=== PATIENT | female | born 1935 | race Caucasian/White ===

== ENCOUNTER 2019-09-08 | Emergency (ER) | payer MEDICARE ==
[~2019-09-08] MED LIST: DOXAZOSIN1 MG PO; GLYBURIDE5 MG PO; MAXZIDE PO; METFORMIN500 M1 PO; ULTRAM50 M1 PO
[2019-09-08] MEDS ORDERED: ORPHENADRINE100 MG PO ×2 (13:15)
[2020-03-20] MEDS ORDERED: NIFEDIPINE60 MG PO (10:54)
[2020-03-20] MEDS ORDERED: METFORMIN500 M2 PO (10:54)
[2020-03-20] MEDS ORDERED: GLIPIZIDE5 MG PO (10:55)
[2020-03-20] MEDS ORDERED: METOPROL TAR25 MG PO (10:55)
[2020-03-20] MEDS ORDERED: GERITOL COMPLETE PO (10:55)
[2020-03-20] MEDS ORDERED: LIPITOR20 MG PO (10:56)
== END 2019-09-08 13:40 | disposition home or self-care (01) ==
DX: M54.41 Lumbago with sciatica, right side (principal); E11.9 Type 2 diabetes mellitus without complications; I10 Essential (primary) hypertension; J44.9 Chronic obstructive pulmonary disease, unspecified

== ENCOUNTER 2019-09-22 | Emergency (ER) | payer MEDICARE ==
[~2019-09-22] MED LIST changes: +ORPHENADRINE100 MG PO
[2020-03-20] MEDS ORDERED: METFORMIN500 M2 PO (10:54)
[2020-03-20] MEDS ORDERED: NIFEDIPINE60 MG PO (10:54)
[2020-03-20] MEDS ORDERED: METOPROL TAR25 MG PO (10:55)
[2020-03-20] MEDS ORDERED: GERITOL COMPLETE PO (10:55)
[2020-03-20] MEDS ORDERED: GLIPIZIDE5 MG PO (10:55)
[2020-03-20] MEDS ORDERED: LIPITOR20 MG PO (10:56)
== END 2019-09-22 10:25 | disposition home or self-care (01) ==
PROC: 09C37ZZ Extirpation of Matter from Right External Auditory Canal, Via Natural or Artificial Opening (ICD-10-PCS; principal; 2019-09-22)
DX: T16.1XXA Foreign body in right ear, initial encounter (principal); E11.9 Type 2 diabetes mellitus without complications; I10 Essential (primary) hypertension; J44.9 Chronic obstructive pulmonary disease, unspecified; X58.XXXA Exposure to other specified factors, initial encounter

== ENCOUNTER 2020-03-27 08:04 | Day surgery (SDC) | payer MEDICARE ==
[~2020-03-27] VITALS: Ht 157.5 cm; Wt 66.2 kg
[~2020-03-27 08:04] MED LIST changes: +GERITOL COMPLETE PO; +GLIPIZIDE5 MG PO; +LIPITOR20 MG PO; +METFORMIN500 M2 PO; +METOPROL TAR25 MG PO; +NIFEDIPINE60 MG PO
[2020-03-27 10:54] VITALS: BP 166/67
== END 2020-03-27 11:05 | disposition home or self-care (01) ==
LOC: ENDO 08:04 → ORM 08:30 → ENDO 09:30
PROVIDERS: ATTEND Internal Medicine Gastroenterology
PROC: 0DBC8ZX Excision of Ileocecal Valve, Via Natural or Artificial Opening Endoscopic, Diagnostic (ICD-10-PCS; principal; 2020-03-27)
PROC: 0DBL8ZX Excision of Transverse Colon, Via Natural or Artificial Opening Endoscopic, Diagnostic (ICD-10-PCS; 2020-03-27)
DX: D12.0 Benign neoplasm of cecum (principal); D12.3 Benign neoplasm of transverse colon; K63.3 Ulcer of intestine; K64.4 Residual hemorrhoidal skin tags; K64.8 Other hemorrhoids; I10 Essential (primary) hypertension; E11.9 Type 2 diabetes mellitus without complications; Z79.84 Long term (current) use of oral hypoglycemic drugs; Z20.828 Contact with and (suspected) exposure to other viral communicable diseases

== ENCOUNTER 2021-01-01 19:35 | Emergency (ER) | payer MEDICARE ==
[~2021-01-01] VITALS: Ht 157.5 cm; Wt 64.0 kg
[2021-01-01] MEDS ORDERED: ADVAIR DISK1 IN (19:58)
[2021-01-01 20:08] LABS: HEMATOCRIT 40.9 % (37.0-47.0); HEMOGLOBIN 12.8 g/dl (12.0-16.0); IMMATURE GRANULOCYTES 0.5 % (0.0-5.0); MEAN CORPUSCULAR HGB 27.2 pG CALC (26.0-32.0); MEAN CORPUSCULAR HGB CONC 31.3 g/dL CAL (32.0-36.0); NEUT# 7.25 thou/uL (2.00-7.15); RED BLOOD COUNT 4.7 mill/uL (4.20-5.60); RED CELL DISTRI WIDTH 13.2 % (11.5-15.5)
[2021-01-01 20:18] LABS: ALBUMIN 4.6 g/dL (3.2-5.0); ALKALINE PHOSPHATASE 55 u/l (38-126); ANION GAP 16 (6-22 (CALC)); BILIRUBIN, TOTAL 0.3 mg/dL (0.0-1.4); BUN 17 mg/dL (8-23); BUN/CREATININE RATIO 24 (12-20 (CALC)); CARBON DIOXIDE 28 mmol/l (22-30); CHLORIDE 95 mmol/l (95-108); CREATININE 0.7 mg/dL (0.5-1.0); GFR > 60 ML/MIN (>=60 (CALC)); GFR FOR AFR.AMER. > 60 ML/MIN (>=60 (CALC)); POTASSIUM 4.1 mmol/l (3.5-5.1); SGOT/AST 24 u/l (9-36); SODIUM 135 mmol/l (137-146); TOTAL PROTEIN 8.7 g/dL (6.3-8.2)
[2021-01-01 21:08] VITALS: BP 190/93
[2021-01-01] MEDS ORDERED: PROAIR HFA108 MCG/AC IN (21:13)
== END 2021-01-01 21:28 | disposition home or self-care (01) ==
LOC: ED 19:35
PROVIDERS: Emergency Medicine
DX: J44.9 Chronic obstructive pulmonary disease, unspecified (principal); I10 Essential (primary) hypertension; E11.9 Type 2 diabetes mellitus without complications; Z79.84 Long term (current) use of oral hypoglycemic drugs; Z20.822 Contact with and (suspected) exposure to COVID-19

== ENCOUNTER 2021-01-04 11:37 | Emergency (ER) | payer MEDICARE ==
[~2021-01-04] VITALS: Ht 157.5 cm; Wt 80.0 kg
[~2021-01-04 11:37] MED LIST changes: +ADVAIR DISK1 IN; +PROAIR HFA108 MCG/AC IN
[2021-01-04 12:08] LABS: HEMATOCRIT 42.6 % (37.0-47.0); HEMOGLOBIN 13.2 g/dl (12.0-16.0); IMMATURE GRANULOCYTES 0.6 % (0.0-5.0); MEAN CELL VOLUME 87.1 fL CALC (80.0-100.0); NEUT# 10.88 thou/uL (2.00-7.15); RED BLOOD COUNT 4.89 mill/uL (4.20-5.60); RED CELL DISTRI WIDTH 13.4 % (11.5-15.5)
[2021-01-04 12:48] LABS: ALBUMIN 4.7 g/dL (3.2-5.0); ALKALINE PHOSPHATASE 58 u/l (38-126); ANION GAP 18 (6-22 (CALC)); BILIRUBIN, TOTAL 0.3 mg/dL (0.0-1.4); BUN 18 mg/dL (8-23); BUN/CREATININE RATIO 22 (12-20 (CALC)); CARBON DIOXIDE 29 mmol/l (22-30); CHLORIDE 91 mmol/l (95-108); CREATININE 0.8 mg/dL (0.5-1.0); GFR > 60 ML/MIN (>=60 (CALC)); GFR FOR AFR.AMER. > 60 ML/MIN (>=60 (CALC)); POTASSIUM 3.8 mmol/l (3.5-5.1); SGOT/AST 33 u/l (9-36); SODIUM 134 mmol/l (137-146); TOTAL PROTEIN 8.8 g/dL (6.3-8.2)
[2021-01-04 14:57] VITALS: BP 113/60
== END 2021-01-04 14:57 | disposition short-term general hospital (02) ==
LOC: ED 11:37
PROVIDERS: Family Medicine
DX: I21.4 Non-ST elevation (NSTEMI) myocardial infarction (principal); J44.1 Chronic obstructive pulmonary disease with (acute) exacerbation; I11.0 Hypertensive heart disease with heart failure; I50.9 Heart failure, unspecified; E11.9 Type 2 diabetes mellitus without complications; Z79.84 Long term (current) use of oral hypoglycemic drugs; Z20.822 Contact with and (suspected) exposure to COVID-19
CPT/HCPCS: J1650

== ENCOUNTER 2021-08-27 00:28 | Emergency (ER) | payer MEDICARE ==
[~2021-08-27] VITALS: Ht 157.5 cm; Wt 63.0 kg
[2021-08-27] MEDS ORDERED: LORTAB 5/3255 MG PO (01:21)
[2021-08-27 01:43] VITALS: BP 168/82
== END 2021-08-27 01:45 | disposition home or self-care (01) ==
LOC: ED 00:28
PROC: 2W3CX1Z Immobilization of Right Lower Arm using Splint (ICD-10-PCS; principal; 2021-08-27)
DX: S52.501A Unspecified fracture of the lower end of right radius, initial encounter for closed fracture (principal); I10 Essential (primary) hypertension; E11.9 Type 2 diabetes mellitus without complications; M79.7 Fibromyalgia; J44.9 Chronic obstructive pulmonary disease, unspecified; W18.2XXA Fall in (into) shower or empty bathtub, initial encounter; Y93.E1 Activity, personal bathing and showering; Y92.002 Bathroom of unspecified non-institutional (private) residence as the place of occurrence of the external cause; Z79.84 Long term (current) use of oral hypoglycemic drugs

== ENCOUNTER 2021-09-07 08:25 | Inpatient (IN) | payer MEDICARE ==
[~2021-09-07] VITALS: Ht 152.4 cm; Wt 65.8 kg
[2021-09-07] VITALS (37 sets, daily range): BP systolic 119–179; BP diastolic 47–116
[~2021-09-07 08:25] MED LIST changes: +GLIPIZIDE XL10 MG PO; -GLIPIZIDE5 MG PO; +LORTAB 5/3255 MG PO; +NIFEDIPINE ER60 MG PO; -NIFEDIPINE60 MG PO
--- NOTE | 2021-09-07 08:29 | NUR ---
PATIENT TO [facility] 14 VIA EMS
[2021-09-07 08:51] LABS: IMMATURE GRANULOCYTES 0.3 % (0.0-5.0); MEAN CELL VOLUME 90.1 fL CALC (80.0-100.0); MEAN CORPUSCULAR HGB 27.9 pG CALC (26.0-32.0); NEUT# 6.63 thou/uL (2.00-7.15); RED BLOOD COUNT 3.73 mill/uL (4.20-5.60); RED CELL DISTRI WIDTH 14.9 % (11.5-15.5)
[2021-09-07 08:58] LABS: HEMATOCRIT 33.6 % (37.0-47.0); HEMOGLOBIN 10.4 g/dl (12.0-16.0)
[2021-09-07 09:10] LABS: ALBUMIN 4.1 g/dL (3.2-5.0); ALKALINE PHOSPHATASE 61 u/l (38-126); ANION GAP 16 (6-22 (CALC)); BUN 14 mg/dL (8-23); BUN/CREATININE RATIO 24 (12-20 (CALC)); CARBON DIOXIDE 25 mmol/l (22-30); CHLORIDE 96 mmol/l (95-108); CREATININE 0.6 mg/dL (0.5-1.0); GFR > 60 ML/MIN (>=60 (CALC)); GFR FOR AFR.AMER. > 60 ML/MIN (>=60 (CALC)); POTASSIUM 4.2 mmol/l (3.5-5.1); SGOT/AST 27 u/l (9-36); SODIUM 133 mmol/l (137-146); TOTAL PROTEIN 7.6 g/dL (6.3-8.2)
[2021-09-07 09:11] LABS: BILIRUBIN, TOTAL 0.6 mg/dL (0.0-1.4)
[2021-09-07 09:24] LABS: MYOGLOBIN 22 ng/mL (0 - 62)
--- NOTE | 2021-09-07 10:17 | NUR ---
Reassessment of patient completed. No distress noted.
[2021-09-07 10:21] LABS: URINE BILIRUBIN - DIPSTICK NEGATIVE (NEGATIVE); URINE BLOOD DIPSTICK NEGATIVE (NEGATIVE); URINE COLOR YELLOW; URINE GLUCOSE - DIPSTICK NEGATIVE (NEGATIVE); URINE KETONE TRACE mg/dL (NEGATIVE); URINE LEUK ESTERASE NEGATIVE (NEGATIVE); URINE UROBILINOGEN - DIPSTICK 0.2 E.U./dL (0.2)
[2021-09-07 10:26] LABS: URINE NITRITE - DIPSTICK NEGATIVE (Negative); URINE PROTEIN - DIPSTICK Trace mg/dL (NEG-TRACE)
--- NOTE | 2021-09-07 14:50 | NUR ---
REPORT CALLED TO SANJAY YEAGER IN ICU
--- NOTE | 2021-09-07 15:07 | NUR ---
[facility] CURRENTLY BEDSIDE
[2021-09-07] MEDS ORDERED: PREDNISONE5 MG PO (15:12)
--- NOTE | 2021-09-07 15:12 | NUR ---
PATIENT TAKEN TO ICU 8
[2021-09-07] MEDS ORDERED: ELIQUIS2.5 MG PO (15:13)
[2021-09-07] MEDS ORDERED: TRAMADOL HYDROC50 M1 PO (15:14)
--- NOTE | 2021-09-07 17:01 | NUR ---
PT ARRIVES TO ROOM 8 IN ICU VIA STRETCHER, ACCOMPANIED BY PHAN YEAGER. PT IS ALERT AND ORIENTED X 3, VERY [place]. LUNGS CLEAR BUT DIMINISHED, PLACED ON HIFLOW NASAL CANNULA INSTEAD OF VENTI MASK. PT'S DAUGHTER HAS CALLED AND WAS UPDATED. MONITOR SHOWS CONTROLLED AFIB AT RATE OF 80-100. PT RESTS IN THE BED WITH EYES CLOSED, NO DISTRESS NOTED.
--- NOTE | 2021-09-07 18:44 | NUR ---
PER STAFFING ISSUES, PT HAS BEEN MOVED IN HER BED TO ROOM 16 IN THE ER. PT IS VERY UNHAPPY WITH THIS ARRANGEMENT. CARDIZEM DRIP HAS BEEN TITRATED UP TO 15 MG/HR, HR NOW 80-100. OXYGEN SATS 96%.
--- NOTE | 2021-09-07 19:15 | NUR ---
REPORT RECIEVED FROM SANJAY YEAGER OUT-GOING SHIFT. PATIENT ALERT AND ORIENTED CONDITION STABLE.
--- NOTE | 2021-09-07 20:15 | NUR ---
NEW ORDER RCIEVED BY DR JAYLEEN ELIAS FOR SONATA 5 MG TO AID WITH SLEEP.
--- NOTE | 2021-09-07 21:21 | NUR ---
RESTING QUIETLY NO DISTRESS RESPIRATIONS EVEN AND UNLABORED VOIDE 150 CC CLEAR YELLOW URINE ON THE BED HUTCH[place]. TURNED AND REPOSITIONED FOR COMFORT. REMAIN IN AFIB WITH CONTROLLED VENTICULAR RATE CARIZENM DRIP AT 15 CC/HR VSS STABLE
--- NOTE | 2021-09-07 22:02 | NUR ---
RESTING QUIETLY WITH EYES CLOSED NO DISTRESS NOTED CONDITION STABLE
--- NOTE | 2021-09-07 23:00 | NUR ---
DAUGHTER (JEAN) CALLED UPDATED ON CONDITION. PT RESTING QUIETLY WITHOUT ANY COMPLAINTS CONDITION STABLE
[2021-09-08] VITALS (24 sets, daily range): BP systolic 84–162; BP diastolic 53–105
--- NOTE | 2021-09-08 00:15 | NUR ---
CARDIZEM DRIP TITRATED DOWN FROM 15 MGHR TO 10 MG/HR HR 63 B/P 96/76 WILL CONTINUE TO MONITOR ERP SPECIALIST SHOWS AFIB
--- NOTE | 2021-09-08 02:07 | NUR ---
PHYSICIAn communication pt condition signs of congested failure lung sounds with audible expiratory wheezes. reported new oders recieved give lasix 20mg kvo iv fluids and insert sal catheter
--- NOTE | 2021-09-08 02:30 | NUR ---
teaching provided for sal catheter insertion. Patient acknowledge procedure and agree for insertion. 16 fr sal cathetefr inserted per doctors orders. pt tolerated well 600 cc urine hazy urine return noted catheter secured to leg. lasix 20 mg given as ordered.
--- NOTE | 2021-09-08 05:43 | NUR ---
PATIENT OXYGEN SATUARATON 93% NO ACUTE DISTRESS NOTED TOTAL URINE OUTPUT 1850 ML
[2021-09-08 06:04] LABS: HEMATOCRIT 32.4 % (37.0-47.0); HEMOGLOBIN 10.3 g/dl (12.0-16.0); IMMATURE GRANULOCYTES 0.4 % (0.0-5.0); MEAN CELL VOLUME 90.5 fL CALC (80.0-100.0); MEAN CORPUSCULAR HGB 28.8 pG CALC (26.0-32.0); MEAN CORPUSCULAR HGB CONC 31.8 g/dL CAL (32.0-36.0); NEUT# 4.93 thou/uL (2.00-7.15); RED BLOOD COUNT 3.58 mill/uL (4.20-5.60)
[2021-09-08 06:27] LABS: ALBUMIN 3.7 g/dL (3.2-5.0); ALKALINE PHOSPHATASE 54 u/l (38-126); ANION GAP 18 (6-22 (CALC)); BILIRUBIN, TOTAL 0.4 mg/dL (0.0-1.4); BUN 14 mg/dL (8-23); BUN/CREATININE RATIO 23 (12-20 (CALC)); C-REACTIVE PROTEIN 3.5 mg/dL (0-0.9); CARBON DIOXIDE 25 mmol/l (22-30); CHLORIDE 97 mmol/l (95-108); CREATININE 0.6 mg/dL (0.5-1.0); GFR > 60 ML/MIN (>=60 (CALC)); GFR FOR AFR.AMER. > 60 ML/MIN (>=60 (CALC)); POTASSIUM 3.8 mmol/l (3.5-5.1); SGOT/AST 22 u/l (9-36); SODIUM 136 mmol/l (137-146); TOTAL PROTEIN 6.9 g/dL (6.3-8.2)
--- NOTE | 2021-09-08 09:00 | NUR ---
PT SEEN EXTREMELY ANXIOUS AT START OF SHIFT. SHE FELT CONFINED IN ROOM 16, DID NOT HAVE A TV, WANTED A WINDOW TO LOOK OUT, IV HURTING, TANGLED UP IN WIRES, FELT LIKE SHE NEEDED TO VOID EVEN THOUGH SHE HAS GODNIEZ. EACH COMPLAINT WAS ADDRESSED, SO NOW SHE IS IN ROOM 13. FAMILY CALLED AND WAS UPDATED.
--- NOTE | 2021-09-08 11:57 | NUR ---
CARDIZEM DRIP HAS BEEN TURNED OFF PER HR 65, BP 95/57. PT SEEN AT REST IN THE BED WITH EYES CLOSED, TALKING IN HER SLEEP.
--- NOTE | 2021-09-08 13:49 | NUR ---
PT WOKE FROM A NAP, WAS TALKING LOUDLY CALLING NURSE IN ROOM. SHE THOUGHT THAT SHE WAS AT A [facility] AND WAS SURPRISED TO KNOW THAT SHE WAS IN THE HOSPITAL. DAUGHTER JEAN CALLED AT THAT TIME AND WAS CONCERNED ABOUT THIS. LATER PT STATED THAT THIS HAPPENS WHEN HER DAUGHTER GIVES HER ULTRAM. PT HAD BEEN GIVEN ULTRAM FOR PAIN RELIEF THIS MORNING. PT NOW REORIENTED, AT REST IN THE BED, NO DISTRESS, NO FURTHER CONFUSION.
--- NOTE | 2021-09-08 15:50 | NUR ---
PT CONTINUES IN THE BED, RESTLESS AT TIMES, USING CALL LEIVA WITHOUT MEANING TO CALL NURSE, TEXTING ON HER PHONE. HR REMAINS AFB HR 92. OXYGEN SATS 95% ON 4 LPM NC. PT REMAINS SOMEWHAT CONFUSED.
--- NOTE | 2021-09-08 18:06 | NUR ---
CARDIZEM DRIP WAS RESTARTED PER ELEVATING HR IN THE 130 RANGE, 10 MG/HR.
--- NOTE | 2021-09-08 19:10 | NUR ---
moved back to icu8 per bed from er. pt cont to yell out "take me to the hospital." refers to the day shift male nurse as "that man took me from the hospital." pt reassured. attached to all monitors. bed alarm activated. after a few minutes pt calmed down. o2 cont per nc. cardiac care unit nurse shows a fib hr 123. #20 lfa cardizem gtt infusing @ 10mg/hr ns infusing @ 20cchr. sal cath in place. urine clear yellow. fall & air/contact precautions cont.
--- NOTE | 2021-09-08 19:15 | NUR ---
ICU OPENED AT ICU NURSES HERE TO TRANSPORT THE PT'S TO ICU.
--- NOTE | 2021-09-08 20:45 | NUR ---
pt yelling out "i see smoke. it's white smoke." pt reassured.
--- NOTE | 2021-09-08 21:45 | NUR ---
awake. remains confused but calm. still thinks "there's white smoke in here." pt pulled o2, monitor technician & pulse ox off-replaced.
--- NOTE | 2021-09-09 00:01 | NUR ---
has slept for approx 2 hrs now is awake attempting to get oob. thinks there is a man, squirrels & frogs in her room. is VERY aggitated for approx 30min. this telegraphic typewriter operator remained in the room during this episode then pt returned to sleep. bed alarm cont.
[2021-09-09 00:15] VITALS: BP 110/55
[2021-09-09 01:15] VITALS: BP 131/66
--- NOTE | 2021-09-09 02:00 | NUR ---
eyes closed. no distress. monitor technician shows a fib pvcs.
--- NOTE | 2021-09-09 04:00 | NUR ---
awake. attempting to get oob. confused. speaks of "need to go to the courthouse. i might get sued." became aggitated, yelling @ this senior underwriter. spent approx 40 min in room with pt d/t her confusion & attempts to get oob. spoke @ length multiple times about reasons for hospitalization. unable to fully orient but became calmer. bed alarm conts.
[2021-09-09 04:15] VITALS: BP 166/96
[2021-09-09 05:40] LABS: HEMATOCRIT 31.8 % (37.0-47.0); HEMOGLOBIN 10.1 g/dl (12.0-16.0); MEAN CELL VOLUME 88.6 fL CALC (80.0-100.0); MEAN CORPUSCULAR HGB 28.1 pG CALC (26.0-32.0); MEAN CORPUSCULAR HGB CONC 31.8 g/dL CAL (32.0-36.0); RED BLOOD COUNT 3.59 mill/uL (4.20-5.60); RED CELL DISTRI WIDTH 14.9 % (11.5-15.5)
--- NOTE | 2021-09-09 05:54 | NUR ---
awake. somewhat confused but calm. o2 cont. residential monitor shows a fib pvcs hr 101.
[2021-09-09 05:55] LABS: ALBUMIN 3.9 g/dL (3.2-5.0); ALKALINE PHOSPHATASE 83 u/l (38-126); ANION GAP 20 (6-22 (CALC)); BILIRUBIN, TOTAL 0.6 mg/dL (0.0-1.4); BUN 21 mg/dL (8-23); BUN/CREATININE RATIO 30 (12-20 (CALC)); CARBON DIOXIDE 21 mmol/l (22-30); CHLORIDE 96 mmol/l (95-108); CREATININE 0.7 mg/dL (0.5-1.0); GFR > 60 ML/MIN (>=60 (CALC)); GFR FOR AFR.AMER. > 60 ML/MIN (>=60 (CALC)); MAGNESIUM 1.3 mg/dL (1.6-2.3); POTASSIUM 4.2 mmol/l (3.5-5.1); SGOT/AST 87 u/l (9-36); SODIUM 133 mmol/l (137-146); TOTAL PROTEIN 7.1 g/dL (6.3-8.2)
--- NOTE | 2021-09-09 07:30 | NUR ---
PT SITTING IN BED. A&OX3. PT VERY [place]. PT ABLE TO RECALL CONFUSION DURING THE NIGHT, STATES THAT IT IS THE "TRAMADOL, EVERY TIME I TAKE IT I GO NUTS". PT ALSO REFUSES TO TAKE MEDICATION AGAIN. RT WRIST FX; PT STATING SHE WAS SUPPOSED TO HAVE SURGERY AT [facility]. EXPIRATORY WHEEZING/COARSE HEARD UPON AUSUCLTATION. O2 VIA NC @4L IN PLACE; PT REPORTS USING O2 AT HOME AT 3L. PT CURRENTLY AFIB ON THE MONITOR WITH A RATE OF 115-130 BPM. CARDIZEM GTT CURRENTLY INFUSING AT 10 MG/HR. IVF INFUSING AT KVO; ABX INITIATED AT THIS TIME. IVS APPEAR HEALTHY AND PATENT. ACTIVE BOWEL SOUNDS X4 QUADRANTS. GODINEZ CATHETER IN PLACE DRAINING VIA GRAVITY WITH CLEAR YELLOW URINE NOTED IN COLLECTION BAG. PT ABLE TO TAKE PO MEDICATIONS WITHOUT COMPLICATIONS. ASSESSMENT COMPLETED. DISCUSSED POC. ISOLATION PRECAUTIONS IN PLACE. CALL LIGHT WITHIN REACH. BED ALARM IN PLACE FOR SAFETY.
[2021-09-09 08:00] VITALS: BP 135/71
--- NOTE | 2021-09-09 08:13 | NUR ---
CARDIZEM GTT TITRATED DOWN TO 5MG/MIN.
--- NOTE | 2021-09-09 08:30 | NUR ---
KRISTIN GTT D/C AT THIS TIME HR SUSTAINING 68-72 BPM. DAUGHTER JEAN UPDATED ON POC THROUGH FT CALL COMPLETED BY PT. NO NEEDS REPORTED AT THIS TIME. CALL LIGHT WITHIN REACH. BED ALARM REMAINS IN PLACE FOR SAFETY.
--- NOTE | 2021-09-09 10:00 | NUR ---
PT REQUESTING TO GET OOB INTO THE BSC FOR BM, PT UNABLE TO HAVE BM. DR RUEDA NOTIFIED; MOM ORDERED. PT ASSISTED BACK INTO BED. CALL LIGHT WITHIN REACH. BED ALARM IN PLACE FOR SAFETY.
[2021-09-09 12:00] VITALS: BP 127/70
--- NOTE | 2021-09-09 12:42 | NUR ---
PT ATTEMPTING TO GET OOB; SCREAMING STATING "WHERE IS JEAN? CAN YOU FIND JEAN? SHE WAS JUST HERE! IM IN A DIFFERENT BED!" REORIENTED PT TO CURRENT PLACE. ASSISTED PT BACK INTO BED. CALL LIGHT WITHIN REACH. BED ALARM IN PLACE FOR SAFETY. DR RUEDA NOTIFIED; ORDER OBTAINED FOR PO SEROQUIL.
--- NOTE | 2021-09-09 12:53 | NUR ---
PO SEROQUIL GIVEN. PT TOLERATED WELL
--- NOTE | 2021-09-09 14:57 | NUR ---
PT AWAKENED AND SCARED; STATES SHE WAS HAVING A BAD DREAM. PT REORIENTED. PT ASSISTED BACK INTO BED. ABLE TO FALL BACK ASLEEP. CALL LIGHT WITHIN REACH. BED ALARM IN PLACE FOR SAFTETY.
[2021-09-09 16:00] VITALS: BP 146/78
--- NOTE | 2021-09-09 16:00 | NUR ---
PT SLEEPING IN BED. NO DISTRESS NOTED. O2 REMAINS UNCHANGED @3L . BED ALARM IN PLACE FOR SAFETY.
--- NOTE | 2021-09-09 18:18 | NUR ---
PT REFUSED ADMINISTRATION OF INSULIN. BEGAN GETTING AGRESSIVE WITH INTERNATIONAL BANKER; PT GRABBING ARM AND STATING "GET AWAY FROM ME" THIS INTERNATIONAL BANKER TO LEAVE ROOM. CALL LIGHT WITHIN REACH. BED ALARM IN PLACE FOR SAFETY.
--- NOTE | 2021-09-09 19:00 | NUR ---
spoke to pt about ct. pt refused.
--- NOTE | 2021-09-09 19:15 | NUR ---
eyes closed then awakens startled attempting to get oob, confused, aggitated. pt yelling out "is he " & pointed to bedside chair. attempted to reorient without success. after few minutes pt calm, confused & returned to sleep. o2 cont per nc. air sampling and monitoring shows a fib pvcs hr 120. #20 lfa & lac saline locks. sal cath in place. urine clear yellow. fall & air/contact precautions & bed alarm cont.
--- NOTE | 2021-09-09 20:00 | NUR ---
attempting to get oob. attempted to reorient without success. pt pulled hub off saline lock-replaced. blood on pt & linen. partial bath given, linen changed, turned pt to lt side as she appears to rest better on that side. bed alarm conts. pt cont to refuse ct.
[2021-09-10] VITALS (19 sets, daily range): BP systolic 65–157; BP diastolic 49–113
--- NOTE | 2021-09-10 00:01 | NUR ---
eyes closed. no distress. environmental monitoring technician shows a fib pvcs hr 108.
--- NOTE | 2021-09-10 03:00 | NUR ---
ELECTRICAL TESTER BATTERY SHOWS A FIB PVCS HR 125. CARDIZEM GTT RESTARTED.
--- NOTE | 2021-09-10 04:00 | NUR ---
electronic device monitor shows a fib pvcs hr 126.
--- NOTE | 2021-09-10 07:00 | NUR ---
REPORT RECEIVED FROM JUANITA MCWILLIAMS. PT AWAKE ALERT AND APPROPRIATE. DOES NOT APPEAR TO BE CONFUSED. REMAINS RESTLESS, MOVING FROM LEFT TO RIGHT SIDE. PT IV SITE FOUND DISLODGED IN THE LAC. SITE IS CDI. NO REDNESS NOTED. SECOND IV CLEANSED AND FLUSHED AND IS PATENT. IV CARDIZEM PLACED IN IV SITE IN THE LFA. PT HR IS 142 AND BP IS 140/107. DRIP TITRATED TO RATE OF 15. PT BS CHECKED AND IS 242. PT REQUESTING TYLENOL FOR PAIN IN THE BACK. WILL MEDICATE WITH INSULIN. BED ALARM REMAINS ON AND ACTIVATED FOR ADDITIONAL SAFETY MEASURE.
[2021-09-10 09:15] LABS: HEMATOCRIT 31.7 % (37.0-47.0); HEMOGLOBIN 9.9 g/dl (12.0-16.0); IMMATURE GRANULOCYTES 0.5 % (0.0-5.0); MEAN CELL VOLUME 90.6 fL CALC (80.0-100.0); MEAN CORPUSCULAR HGB 28.3 pG CALC (26.0-32.0); MEAN CORPUSCULAR HGB CONC 31.2 g/dL CAL (32.0-36.0); NEUT# 6.74 thou/uL (2.00-7.15); RED BLOOD COUNT 3.5 mill/uL (4.20-5.60); RED CELL DISTRI WIDTH 15.3 % (11.5-15.5)
--- NOTE | 2021-09-10 09:40 | NUR ---
FAMILY JEAN ON PHONE AT THIS TIME. GIVEN PT UPDATE. DENIES FURTHER QUESTIONS AT THIS TIME. WILL UPDATE FAMILY OF POC WHEN MORE INFORMATION AVAILABLE.
[2021-09-10 10:03] LABS: ALBUMIN 3.6 g/dL (3.2-5.0); ALKALINE PHOSPHATASE 79 u/l (38-126); ANION GAP 20 (6-22 (CALC)); BILIRUBIN, TOTAL 0.6 mg/dL (0.0-1.4); BUN 33 mg/dL (8-23); BUN/CREATININE RATIO 39 (12-20 (CALC)); C-REACTIVE PROTEIN 2.4 mg/dL (0-0.9); CARBON DIOXIDE 21 mmol/l (22-30); CHLORIDE 100 mmol/l (95-108); CREATININE 0.8 mg/dL (0.5-1.0); GFR > 60 ML/MIN (>=60 (CALC)); GFR FOR AFR.AMER. > 60 ML/MIN (>=60 (CALC)); POTASSIUM 4.2 mmol/l (3.5-5.1); SGOT/AST 125 u/l (9-36); SODIUM 137 mmol/l (137-146); TOTAL PROTEIN 6.7 g/dL (6.3-8.2)
--- NOTE | 2021-09-10 10:20 | NUR ---
PT USING THE CALL LIGHT AT THIS TIME TO REPORT BACK PAIN. REPOSITIONED TO SITTING POSITION IN BED, BACK RUBBED. PT SPO2 REPOSITIONED READING 85%. PT COMPLAINS OF BEING UNCOMFORTABLE AND HOT, WHEN FELT PT IS DIAPHORETIC. PT REMAINS RESTLESS, AND SUDDENLY BECOMES NON-RESPONSIVE. ADDITIONAL NURSING STAFF ALERTED, RAPID RESPONSE INITIATED.
--- NOTE | 2021-09-10 10:30 | NUR ---
ALL MEMBERS OF CODE TEAM IN ROOM AT THIS TIME. PT REMAINS UNRESPONSIVE WITH WHAT APPEARS TO BE AGONAL BREATHING. CARIDAC MONITOR APPLIED. RESPIRATORY NOTIFIED WELL ANESTHESIA FOR POSSIBLE INTUBATION. PHARMACY ON UNIT FOR ADDITIONAL MEDICATION SUPPORT.
--- NOTE | 2021-09-10 10:50 | NUR ---
ANESTHESIA AT HEAD OF BED, READY FOR INTUBATION. PT BECOMES AWAKE AND USING BILATERAL ARMS TO HAVE STAFF REMOVE AMBU BAG FROM FACE. PT YELLING AT STAFF. PT AWAKE AND ORIENTATED. NON-REBREATHER RE-APPLIED. SPO2 IMPROVING FROM SATS OF 53% AT 1025 TO 91% AT THIS TIME. VS ALSO SHOW IMPROVEMENT SBP 115/59 HR 66. WILL CONTINUE TO MONITOR VS. NO INTUBATION AT THIS TIME.
--- NOTE | 2021-09-10 11:00 | NUR ---
PT IS FULLY AWAKE AND ALERT. C/O BACK PAIN. DOES NOT RECALL EPISODE THAT STARTED AT 1020. VSS HR 62, SBP IS 134/65, SPO2 IS 96%. ABG PREFORMED. WILL WAIT FOR LAB TO DECIDE POC.
[2021-09-10 11:14] LABS: HEMATOCRIT 31.2 % (37.0-47.0); HEMOGLOBIN 9.5 g/dl (12.0-16.0); IMMATURE GRANULOCYTES 0.4 % (0.0-5.0); MEAN CELL VOLUME 92.3 fL CALC (80.0-100.0); MEAN CORPUSCULAR HGB 28.1 pG CALC (26.0-32.0); MEAN CORPUSCULAR HGB CONC 30.4 g/dL CAL (32.0-36.0); NEUT# 9.3 thou/uL (2.00-7.15); RED BLOOD COUNT 3.38 mill/uL (4.20-5.60); RED CELL DISTRI WIDTH 15.5 % (11.5-15.5)
--- NOTE | 2021-09-10 11:14 | NUR ---
FAMILY JEAN NOTIFIED AT THIS TIME OF PREVIOUS EVENTS. FAMILY RE-ASSURED THAT PAITENT IS STABLE. OFF CARDIZEM DRIP, VSS. ADDITIONAL TESTING BEING PREFORMED. PT DID HAVE LARGE HARD FORMED BM AT THE TIME OF EVENT, POSSIBLE VAGAL EPISODE. FAMILY APPRECIATIVE OF NOTIFICATION. WILL KEEP NOTIFIED OF DAYS EVENTS.
--- NOTE | 2021-09-10 11:30 | NUR ---
NOTIFIED OF PT'S BP DROPPING FROM 135/67 TO 90/53 AFTER 1L BOLUS. ADDITIONAL 1 L BOLUS ORDERED.
[2021-09-10 12:05] LABS: ALBUMIN 3.1 g/dL (3.2-5.0); ALKALINE PHOSPHATASE 81 u/l (38-126); BILIRUBIN, TOTAL 0.5 mg/dL (0.0-1.4); BUN 28 mg/dL (8-23); BUN/CREATININE RATIO 33 (12-20 (CALC)); CHLORIDE 106 mmol/l (95-108); CREATININE 0.8 mg/dL (0.5-1.0); GFR > 60 ML/MIN (>=60 (CALC)); GFR FOR AFR.AMER. > 60 ML/MIN (>=60 (CALC)); SGOT/AST 124 u/l (9-36); SODIUM 137 mmol/l (137-146)
[2021-09-10 12:12] LABS: ANION GAP 22 (6-22 (CALC)); POTASSIUM 3.9 mmol/l (3.5-5.1)
[2021-09-10 12:19] LABS: CARBON DIOXIDE 13 mmol/l (22-30)
--- NOTE | 2021-09-10 12:23 | NUR ---
MD MADE AWARE OF CRITICAL LACTIC ACID, XRAY IN TO TAKE IMAGE OF CHEST. PT AWAKE AKERT AND ASKED ABOUT HAVING CT THAT WAS ORDERED LAST NIGHT. PT NO LONGER REFUSING TEST. WILL ATTEMPT CT WHEN PT IS MORE STABLE. VSS AT THIS TIME. WILL CONTINUE TO MONITOR CLOSELY.
--- NOTE | 2021-09-10 13:11 | NUR ---
EKG PREFORMED AT THIS TIME BY RT. AWARE OF COMPLETION. PT REMAINS STABLE.
--- NOTE | 2021-09-10 14:29 | NUR ---
PT ON THE CALL LIGHT AT THIS TIME C/O BEING COLD. WARM BLANKET, HOT COFFEE AND ROOM TEMPERATURE TURNED UP. PT APPRECIATIVE, DOES NOT REMEMBER ANY OF EARLIER EVENTS. GIVEN PHONE OFF COMMERCIAL INSURANCE UNDERWRITER, CHECKING MISSED MESSAGES AND CALLS. DENIES ANY FURTHER NEEDS. CALL LIGHT WITHIN REACH. BED ALARM REMAINS ON. WILL CONTINUE TO MONITOR. CLOSELY.
--- NOTE | 2021-09-10 19:30 | NUR ---
eyes closed. no resp diff.
--- NOTE | 2021-09-10 20:45 | NUR ---
awakens easily. mentation MUCH better tonight. o2 cont per nc. ekg monitor shows a fib pvcs hr 118. #20 lac & #22 lfa saline locks. sal cath in place urine clear yellow. splint cont to rfa. fall & air/contact precautions cont. bed alarm on.
[2021-09-11] VITALS (55 sets, daily range): BP systolic 90–197; BP diastolic 62–107
--- NOTE | 2021-09-11 00:16 | NUR ---
lab here. blood drawn.
--- NOTE | 2021-09-11 04:00 | NUR ---
eyes closed. no distress. nurse monitoring shows a fib pvcs.
--- NOTE | 2021-09-11 06:16 | NUR ---
lab here. blood drawn.
[2021-09-11 06:37] LABS: HEMATOCRIT 35.8 % (37.0-47.0); HEMOGLOBIN 10.6 g/dl (12.0-16.0); MEAN CELL VOLUME 94.5 fL CALC (80.0-100.0); MEAN CORPUSCULAR HGB CONC 29.6 g/dL CAL (32.0-36.0); RED BLOOD COUNT 3.79 mill/uL (4.20-5.60); RED CELL DISTRI WIDTH 15.6 % (11.5-15.5)
[2021-09-11 06:58] LABS: CREATININE 1.1 mg/dL (0.5-1.0); MAGNESIUM 2.7 mg/dL (1.6-2.3); POTASSIUM 4.7 mmol/l (3.5-5.1)
--- NOTE | 2021-09-11 07:00 | NUR ---
REPORT RECEIVED FROM JUANITA MCWILLIAMS. PT AWAKE AND ALERT. REQUESTING TO SIT AT THE SIDE OF BED FOR BREAKFAST. ASSISTED TO SIDE WITH MINIMAL EFFORT. ABLE TO EAT INDEPENDANTLY. GIVEN WASHCLOTH FOR AM CARE. MONITOR, BP CUFF AND SPO2 MONITOR RE-APPLIED. [place] GOWN APPLIED, R/T PT BEING RESTLESS. PATIENT VSS. SPO2 IS 96% ON RA WHILE SITTING. ONCE FINISHED WITH MEAL TRAY PT ASSISTED BACK TO BED AND OXYGEN LEVEL IS 88%. OXYGEN RE-APPLIED AT 2L AND SPO2 SLOWLY REACHES 95%. PT ADMITS TO HAVING PAIN ALL OVER AND ATTRIBUTES IT TO HER FIBROMYALGIA. PT STATES "I TAKE PREDNISONE 7.5MG AT HOME EVERYDAY" WILL LET MD KNOW WHEN ON UNIT OF PT'S MEDICATION INQUIREY. BED ALARM RE-APPLIED FOR ADDITIONAL SAFETY MEASURES. PT DENIES ANY FURTHER NEEDS. CALL LIGHT WITHIN REACH FOR ASSISTANCE.
--- NOTE | 2021-09-11 10:31 | NUR ---
pt famiy on phone at this time. informed of possible discharge today. family and pt eager for discharge. will turn oxygen off to watch for signs of desaturation. bed alarm remains on for additional safety measures. pt using the call light appropriately. instructed pt call for assistance. will continue to monitor.
--- NOTE | 2021-09-11 10:56 | NUR ---
NOTIFIED OF PTS' SPO2 BEING 85% ON RA. WILL NEED TO NOTIFY CASE MANAGEMENT FOR OXYGEN SETUP AT HOME. PT RESTING IN BED ON RIGHT SIDE. WILL PLACE OXYGEN BACK ON AT THIS TIME.
--- NOTE | 2021-09-11 11:05 | NUR ---
MD NOTIFIED OF PT'S OXYGEN SATURATION NOT GOING UP, INFACT DESATURATION CONTINUES. PT HAVING SIMILAR EPISODE YESTERDAYS EVENTS AT SAME TIME. IMMEDIATELY AT BS.
--- NOTE | 2021-09-11 11:10 | NUR ---
RT NOTIFIED OF PT'S CONTINUAL DETERIORATION OF OXYGEN STATUS. BECOMING UNRESPONSIVE TO ANYTHIN OTHER THAN PAINFUL STIMULI. RAPID RESPONSE INITIATED.
--- NOTE | 2021-09-11 11:22 | NUR ---
CODE BLUE CALLED AT THIS TIME. HIGH QUALITY CPR BEGINS. PT ALREADY INTUBATED. AMBU BAG ATTACHED TO ET AIRWAY.
--- NOTE | 2021-09-11 11:32 | NUR ---
ROSC ACHEIVED AT THIS TIME. MD ON PHONE WITH FAMILY TO INFORM OF CHAIN OF EVENTS.
[2021-09-11 12:00] LABS: HEMATOCRIT 33.2 % (37.0-47.0); HEMOGLOBIN 9.9 g/dl (12.0-16.0); IMMATURE GRANULOCYTES 4.4 % (0.0-5.0); MEAN CELL VOLUME 93.8 fL CALC (80.0-100.0); MEAN CORPUSCULAR HGB CONC 29.8 g/dL CAL (32.0-36.0); NEUT# 8.96 thou/uL (2.00-7.15); RED BLOOD COUNT 3.54 mill/uL (4.20-5.60); RED CELL DISTRI WIDTH 15.5 % (11.5-15.5)
[2021-09-11 12:19] LABS: ALBUMIN 2.9 g/dL (3.2-5.0); ALKALINE PHOSPHATASE 86 u/l (38-126); BILIRUBIN, TOTAL 0.7 mg/dL (0.0-1.4); BUN 39 mg/dL (8-23); BUN/CREATININE RATIO 36 (12-20 (CALC)); CHLORIDE 108 mmol/l (95-108); CREATININE 1.1 mg/dL (0.5-1.0); GFR 47 ML/MIN (>=60 (CALC)); GFR FOR AFR.AMER. 57 ML/MIN (>=60 (CALC)); POTASSIUM 4.3 mmol/l (3.5-5.1); SODIUM 139 mmol/l (137-146); TOTAL PROTEIN 5.6 g/dL (6.3-8.2)
[2021-09-11 12:21] LABS: ANION GAP 27 (6-22 (CALC)); CARBON DIOXIDE 8 mmol/l (22-30)
[2021-09-11 12:31] LABS: SGOT/AST > 1500 u/l (9-36)
--- NOTE | 2021-09-11 12:54 | NUR ---
ADMINISTRATIVE SERVICES ASSISTANT CALLED TO ICU TO ASSESS PT. PT UNRESPONSIVE EXCEPT TO PAINFUL STIMULI (STERNAL RUB). ADMINISTRATIVE SERVICES ASSISTANT INTUABTED PT C MD AT BEDSIDE. NONTRAUMATIC AIRWAY PLACED. SECURED AND CONFIRMED C ETCO2 COLOR CHANGE, BBS BILATERAL, CONDENSATION IN ETT, AND CXR LATER CONFIRMED PLACEMENT. ABG TO BE OBTAINED SHORTLY, PARAMTER TITRATION ACCORDINGLY.
--- NOTE | 2021-09-11 13:55 | NUR ---
PT LACTIC ACID DRAWN AT THIS TIME
[2021-09-11 13:59] LABS: TSH, 3RD GENERATION 1.37 uIU/mL (0.47 - 4.68)
--- NOTE | 2021-09-11 14:00 | NUR ---
GODINEZ CATHETER PLACED AT THIS TIME USING STERIL TECHNIQUE. SMALL AMOUNT OF URINE FROM BLADDER EMPTIED. PT VSS, RESTRAINTS IN PLACE AND NEURO CICULATION CHECKED.
--- NOTE | 2021-09-11 15:00 | NUR ---
FAMILY ON PHONE AND UPDATED OF PT'S STATUS. NO CHANGE TO CODE STATUS AT THIS TIME. WILL CONTINUE POC. PT VSS, WILL COORDINATE WITH RT FOR TRANSPORT TO RADIOLOGY.
--- NOTE | 2021-09-11 15:41 | NUR ---
SPOKE WITH RT AT THIS TIME. NOT ABLE TO COLLABORATE TRANSPORT AT THIS TIME. RT STATES WILL NOTIFY ME, WHEN READY.
--- NOTE | 2021-09-11 16:00 | NUR ---
RT AND FERRYBOAT HELPER TRANSPORTING PT TO CT AT THIS TIME. PORTABLE VENT IN PLACE WITH BACKUP OXYGEN. ZOLL MONITOR IN PLACE.
--- NOTE | 2021-09-11 18:39 | NUR ---
ON THE PHONE AT THIS TIME. REVIEWING, CT IMAGES. WILL D/C THE IV FLUIDS. PT VSS. PT REMAINS ON VENTILATOR WITH THE SAME SETTINGS. OOZING FROM CENTRAL LINE REMAINS THE SAME. RESTRAINTS IN PLACE, NEUROVASCULAR CHECKS ASSESSED WNL.
--- NOTE | 2021-09-11 19:00 | NUR ---
REPORT RECEIVED FROM POP YEAGER. CARE OF PT ASSUMED AT THIS TIME.
--- NOTE | 2021-09-11 19:51 | NUR ---
Moi PEARSON COVERED BUCKLE ASSEMBLER AT BEDSIDE COLLECTING ABG.
--- NOTE | 2021-09-11 21:05 | NUR ---
SPOKE WITH DR. RUEDA REGARDING ABG RESULTS, CURRENT HEMODYNAMICS AND ANURIA. NO NEW ORDERS. B. PEARSON MAIL PROCESSING MACHINE OPERATOR DECREASE FIO2 TO 90%, RATE INCREASED TO 20/MIN. DR. RUEDA MADE AWARE OF VENT SETTING CHANGES.
[2021-09-12] VITALS (22 sets, daily range): BP systolic 90–149; BP diastolic 51–92
--- NOTE | 2021-09-12 04:30 | NUR ---
PARTIAL BED BATH AND COMPLETE LINEN CHANGE DONE. PT FLOATED ON PILLOWS WITH BUE AND BLE ELEVATED AND HEELS OFF LOADED. SKIN GROSSLY INTACT. AQUACELL FOAM APPLIED TO COCCYX PROTECTIVE MEAUSURE. HEELS REDDENED AND BLANCHABLE. CONTINUE TO OFF LOAD AND MONITOR.
--- NOTE | 2021-09-12 04:55 | NUR ---
LABS COLLECTED FROM R-IJ TLC. URINE COLLECTED FROM GODINEZ. 250ML CLOUDY YELLOW URINE TOTAL OUTPUT. R-IJ TLC DRESSING SOILED WITH BLOOD UNDERNEATH. DRESSING CHANGED.
--- NOTE | 2021-09-12 05:03 | NUR ---
PCXR AT BEDSIDE.
[2021-09-12 05:25] LABS: HEMATOCRIT 34.4 % (37.0-47.0); HEMOGLOBIN 10.3 g/dl (12.0-16.0); IMMATURE GRANULOCYTES 1.2 % (0.0-5.0); MEAN CELL VOLUME 93.5 fL CALC (80.0-100.0); MEAN CORPUSCULAR HGB CONC 29.9 g/dL CAL (32.0-36.0); NEUT# 16.7 thou/uL (2.00-7.15); RED BLOOD COUNT 3.68 mill/uL (4.20-5.60); RED CELL DISTRI WIDTH 15.5 % (11.5-15.5)
[2021-09-12 05:38] LABS: URINE BILIRUBIN - DIPSTICK NEGATIVE (NEGATIVE); URINE BLOOD DIPSTICK MODERATE (NEGATIVE); URINE COLOR YELLOW; URINE GLUCOSE - DIPSTICK NEGATIVE (NEGATIVE); URINE KETONE NEGATIVE (NEGATIVE); URINE PH 5.5 (4.5-8.0); URINE PROTEIN - DIPSTICK 100 mg/dL (NEG-TRACE); URINE SPECIFIC GRAVITY 1.025; URINE UROBILINOGEN - DIPSTICK 0.2 E.U./dL (0.2)
--- NOTE | 2021-09-12 05:45 | NUR ---
B. PEARSON STRIKE OFF MACHINE OPERATOR AT BEDSIDE COLLECTING ABG.
[2021-09-12 05:49] LABS: URINE NITRITE - DIPSTICK NEGATIVE (Negative)
[2021-09-12 05:50] LABS: URINE LEUK ESTERASE NEGATIVE (NEGATIVE)
[2021-09-12 05:52] LABS: ALBUMIN 2.9 g/dL (3.2-5.0); C-REACTIVE PROTEIN 2.5 mg/dL (0-0.9); CREATININE 1.8 mg/dL (0.5-1.0); POTASSIUM 4.9 mmol/l (3.5-5.1); TOTAL PROTEIN 5.3 g/dL (6.3-8.2)
--- NOTE | 2021-09-12 05:56 | NUR ---
PEEP DECREASED TO 10 BY BFeroz PEARSON WOOL HAT FORMING MACHINE TENDER.
[2021-09-12 05:57] LABS: BILIRUBIN, TOTAL 1.1 mg/dL (0.0-1.4)
--- NOTE | 2021-09-12 06:04 | NUR ---
NEOSYNEPHRINE GTT 1MCG/KG/MIN, BICARB GTT 75ML/H, NS KVO @20ML/H, PROPOFOL 20MCG. VENT SETTING AC RR 20 PEEP 10 TV 420 FI02 90%. 2,240 ML INTAKE FOR SHIFT. 250ML OUTPUT FOR SHIFT. NO NGT OUTPUT. RASS -2.
[2021-09-12 06:07] LABS: URINE EPITHELIAL CELLS MODERATE EPI/hpf (0-FEW)
[2021-09-12 06:08] LABS: URINE BACTERIA MODERATE hpf; URINE COARSE GRANULAR CAST FEW lpf; URINE FINE GRAN CAST FEW lpf
[2021-09-12 06:16] LABS: URINE AMORPH SEDIMENT MODERATE hpf (NONE-FEW)
--- NOTE | 2021-09-12 07:57 | NUR ---
REPORT RECEIVED FROM SHOBHA NERI. PT REMAINS ON VENTILATOR WITH SETTING ADJUSTED FROM PREVIOUS ABG. SPO2 IS 98%. PT ASSESSMENT PREFORMED AND PT IS SHOWING AGITIATION TO LIGHT TOUCH. DIPRIVAN INCREASED FROM 20 TO 25 MCG/KG/MIN. MARTÍN-SYNEPHRINE INCREASED FROM 1.0 TO 1.1MCG/KG/MIN. VS STABLE OTHERWISE. WILL PREFORM MOUTH CARE WHEN PT MORE RELAXED.
--- NOTE | 2021-09-12 08:49 | NUR ---
NOTIFIED OF CRITICAL LACTIC ACID 4.8
--- NOTE | 2021-09-12 10:47 | NUR ---
pt given elequis via ng tube at this time. aspiration and ausciltation preformed. placement of tube heard in stomach. given 60cc free water and 40cc of medication, flushed with 60cc of free water. ng tube clamped at this time. will return to [facility] at 1147
--- NOTE | 2021-09-12 13:09 | NUR ---
family in to see patient at this time. questions and concerns addressed. pt vss.sedated and calm at this time.
--- NOTE | 2021-09-12 15:30 | NUR ---
PT TRANSPORTED TO RADIOLOGY FOR CT WITH RTMICHAEL AND RN. PT STABLE AT TIME OF DEPARTURE, DURING TEST, AND BROUGHT BACK TO UNIT WITH NO S/S OF DISTRESS. VSS. PT REPOSITIONED.
--- NOTE | 2021-09-12 17:30 | NUR ---
INSULIN GIVEN FOR BLOOD SUGAR OF 362. VSS, NO NEW EVENTS TO REPORT. PT STABLE AT THIS TIME. SAFETY REVIEWED. WILL CONTINUE TO MONITOR.
--- NOTE | 2021-09-12 19:00 | NUR ---
REPORT RECEIVED FROM Anderson CALLEJAS RN, CARE OF PT ASSUMED AT THIS TIME.
--- NOTE | 2021-09-12 21:36 | NUR ---
CALL RECEIVED FROM CALLER IDENTYFYING SELF PT'S DAUGHTER, JEAN KEITA FROM PHONE # . CALLER PROVIDES APPROPRIATE COMMUNICATION CODE. UPDATES ON PT'S STATUS PROVIDED TO CALLER. QUESTIONS ANSWERED.
[2021-09-13] VITALS (23 sets, daily range): BP systolic 116–158; BP diastolic 68–89
--- NOTE | 2021-09-13 05:20 | NUR ---
LABS COLLECTED BY Luisa FONTANA
[2021-09-13 05:35] LABS: HEMATOCRIT 35.1 % (37.0-47.0); HEMOGLOBIN 10.5 g/dl (12.0-16.0); IMMATURE GRANULOCYTES 2.1 % (0.0-5.0); MEAN CELL VOLUME 91.2 fL CALC (80.0-100.0); MEAN CORPUSCULAR HGB 27.3 pG CALC (26.0-32.0); MEAN CORPUSCULAR HGB CONC 29.9 g/dL CAL (32.0-36.0); NEUT# 9.6 thou/uL (2.00-7.15); RED BLOOD COUNT 3.85 mill/uL (4.20-5.60); RED CELL DISTRI WIDTH 15.7 % (11.5-15.5)
--- NOTE | 2021-09-13 05:35 | NUR ---
MAJO COLLECTED BY Anthony PEARSON RRT.
--- NOTE | 2021-09-13 06:10 | NUR ---
Luisa BRISCOE RT AT BEDSIDE PERFORMING PCXR.
[2021-09-13 06:15] LABS: ALBUMIN 2.6 g/dL (3.2-5.0); BILIRUBIN, TOTAL 0.9 mg/dL (0.0-1.4); CREATININE 2.2 mg/dL (0.5-1.0); TOTAL PROTEIN 5.1 g/dL (6.3-8.2)
--- NOTE | 2021-09-13 06:26 | NUR ---
TOTAL IV IN FOR SHIFT 1766ML. TOTAL OUT FROM GODINEZ 750. AM BED SCALE WEIGHT 69KG. NGT OUTPUT NEGLIGIBLE/SCANT. SP02 99%. VENT A/C RR20, FIO2 80%, PEEP 10, TV 420. NEOSYNEPHRINE WEANED DOWN AND DISCONTINUED @ 0610. NIBP 137/[address] ON MOBILE CRANE OPERATOR. PROPOFOL WEANED DOWN TO 20MCG. PT REMAINS SEDATED WITH RASS OF -2 TO -3.
[2021-09-13 06:40] LABS: POTASSIUM 3.9 mmol/l (3.5-5.1)
--- NOTE | 2021-09-13 08:02 | NUR ---
PT SEEN AT REST IN THE BED, RESPONDS TO VOICE WITH MOVEMENT IN THE EXTREMITIES, VENTED AND SEDATED. SATS 99%. NO DISTRESS NOTED, NO PULLING AT TUBES.
--- NOTE | 2021-09-13 10:42 | NUR ---
WEANED FIO2 TO 70% SATS WERE 99%-100% ON 80% FIO2. WILL CONTINUE TO MONITOR
--- NOTE | 2021-09-13 13:00 | NUR ---
GRANDDAUGHTERS X 2 VISITED WITH PT THIS MORNING. PT REMAINS SEDATED, ALTHOUGH SHE MOVED HER HEAD AND FEET OCCASIONALLY.
--- NOTE | 2021-09-13 16:19 | NUR ---
IV REMOVED FROM LEFT WRIST AREA PER OUTDATED. PT WITH DIPRIVAN AT 40 MKM.
--- NOTE | 2021-09-13 18:19 | NUR ---
PT REPOSITIONED IN BED. RIGHT WRIST BRACE REAPPLIED. PT RESTLESS, THUS DIPRIVAN IS AT 50 MKM. HR CONTINUES @116, ST.
--- NOTE | 2021-09-13 19:00 | NUR ---
REPORT RECEIVED FROM Nara LEDEZMA RN. CARE OF PT ASSUMED AT THIS TIME.
--- NOTE | 2021-09-13 19:25 | NUR ---
PT'S DAUGHTER REMAINS AT BEDSIDE AT THIS TIME. EDUCATION PROVIDED ON PLAN OF CARE. QUESTIONS ANSWERED. DENIES FURTHER QUESTIONS.
--- NOTE | 2021-09-13 22:18 | NUR ---
CALL RECEIVED FROM CALLER IDENTYFYING SELF PT'S DAUGHTER, JEAN KEITA FROM PHONE # . CALLER PROVIDES APPROPRIATE COMMUNICATION CODE. UPDATES ON PT'S STATUS PROVIDED TO CALLER. QUESTIONS ANSWERED.
[2021-09-14] VITALS (33 sets, daily range): BP systolic 80–163; BP diastolic 58–94
--- NOTE | 2021-09-14 00:20 | NUR ---
2,100 ML PALE YELLOW, CLEAR URINE EMPTIED FROM GODINEZ.
--- NOTE | 2021-09-14 05:10 | NUR ---
LABS COLLECTED FROM 1bib TLC.
--- NOTE | 2021-09-14 05:24 | NUR ---
B. PEARSON CIVIL PREPAREDNESS TRAINING OFFICER AT BEDSIDE COLLECTING ABG.
--- NOTE | 2021-09-14 05:35 | NUR ---
1300 ML PALE YELLOW, CLEAR URINE EMPTIED FROM GODINEZ.
[2021-09-14 05:51] LABS: HEMATOCRIT 32.6 % (37.0-47.0); HEMOGLOBIN 10.4 g/dl (12.0-16.0); IMMATURE GRANULOCYTES 1.2 % (0.0-5.0); MEAN CELL VOLUME 87.9 fL CALC (80.0-100.0); MEAN CORPUSCULAR HGB CONC 31.9 g/dL CAL (32.0-36.0); NEUT# 10.48 thou/uL (2.00-7.15); RED BLOOD COUNT 3.71 mill/uL (4.20-5.60); RED CELL DISTRI WIDTH 15.6 % (11.5-15.5)
--- NOTE | 2021-09-14 05:51 | NUR ---
ABG RESULTS REPORTED TO Nara SANTANA APRN. BICARB GTT D/C'D ORDERED.
--- NOTE | 2021-09-14 06:12 | NUR ---
Luisa BRISCOE RT IN ROOM PERFORMING PCXR.
[2021-09-14 06:15] LABS: ALBUMIN 2.6 g/dL (3.2-5.0); C-REACTIVE PROTEIN 4.3 mg/dL (0-0.9); CREATININE 1.9 mg/dL (0.5-1.0); TOTAL PROTEIN 5.1 g/dL (6.3-8.2)
[2021-09-14 06:22] LABS: POTASSIUM 2.9 mmol/l (3.5-5.1)
--- NOTE | 2021-09-14 07:00 | NUR ---
REPORT RECEIVED FROM SHOBHA NERI. PT REMAINS INTUBATED. VENT SETTINGS PER RT. VSS, ASSESSMENT PREFORMED. PUPILS ASSESSED AND ARE UNEQUAL, MD NOTIFIED. TITRATED PROPOFOL FROM 50 TO 45MCG/KG/MIN. RESTRAINTS AND NEUROVASCULAR ASSESSMENT PREFORMED. SKIN INTACT. GODINEZ IN PLACE AND MAKING URINE. UROMETER EMPTIED INTO BAG. WILL CONTINUE TO MONITOR CLOSELY.
--- NOTE | 2021-09-14 13:25 | NUR ---
NOTIFIED OF PT'S BP OF 86/63. DIPRIVAN DECREASED TO 35/MCG/KG AND IV FLUIDS INCREASED. PHARMACY NOTIFIED OF NEED FOR MARTÍN-SYNEPHRINE. WILL CONTINUE TO MONITOR CLOSELY.
--- NOTE | 2021-09-14 13:43 | NUR ---
PT TURNED AND REPOSITIONED AT THIS TIME. BP IS 112/73. DOT COMPLIANCE COORDINATOR ON FLOOR WITH MARTÍN-SYNEPHRINE. WILL INITIATE DRIP AT THIS TIME.
--- NOTE | 2021-09-14 14:02 | NUR ---
CALLED [facility] SPOKE TO JEAN WAS GIVEN CONFIRMATION NUMBER [phone].
--- NOTE | 2021-09-14 14:30 | NUR ---
MARTÍN-SYNEPHRINE STOPPED AT THIS TIME. BP IS STABILIZED. 163/94 WILL CONTINUE TO MONITOR.
--- NOTE | 2021-09-14 15:46 | NUR ---
MARTÍN-SYNEPHRINE RE-STARTED R/T BP 89/60
[2021-09-14 17:38] LABS: CREATININE 1.6 mg/dL (0.5-1.0); POTASSIUM 3.3 mmol/l (3.5-5.1)
--- NOTE | 2021-09-14 19:00 | NUR ---
REPORT RECEIVED FROM Anderson CALLEJAS RN, CARE OF PT ASSUMED AT THIS TIME.
--- NOTE | 2021-09-14 21:22 | NUR ---
CALL RECEIVED FROM DR. ELIAS. ORDERS TO HOLD ELIQUIS AND TAKE PT FOR NONCONTRAST HEAD CT, R/O BLEED. SECONDARY TO FINDING OF UNEQUAL PUPILS. OD 3MM OS 2MM, BOTH EQUALLY REACTIVE TO LIGHT.
[2021-09-15] VITALS (22 sets, daily range): BP systolic 104–143; BP diastolic 62–96
--- NOTE | 2021-09-15 01:30 | NUR ---
PT DOWNT TO CT WITH ASSIST OF Anthony PEARSON RRT FOR VENT MANAGMENT. PT TOLERATED CT WELL. PT MOVED TO AIR MATTRESS AFTER CT.
--- NOTE | 2021-09-15 04:50 | NUR ---
AM LABS COLLECTED VIA [facility]
--- NOTE | 2021-09-15 05:31 | NUR ---
B. PEARSON RESIDENTIAL CONSTRUCTION INSTRUCTOR AT BEDSIDE COLLECTING ABG.
[2021-09-15 05:33] LABS: HEMATOCRIT 33.1 % (37.0-47.0); HEMOGLOBIN 10.3 g/dl (12.0-16.0); MEAN CELL VOLUME 89.9 fL CALC (80.0-100.0); MEAN CORPUSCULAR HGB CONC 31.1 g/dL CAL (32.0-36.0); RED BLOOD COUNT 3.68 mill/uL (4.20-5.60); RED CELL DISTRI WIDTH 15.8 % (11.5-15.5)
[2021-09-15 06:00] LABS: ALBUMIN 2.7 g/dL (3.2-5.0); BILIRUBIN, TOTAL 0.9 mg/dL (0.0-1.4); CREATININE 1.4 mg/dL (0.5-1.0); POTASSIUM 3.4 mmol/l (3.5-5.1); TOTAL PROTEIN 5.1 g/dL (6.3-8.2)
--- NOTE | 2021-09-15 06:13 | NUR ---
Luisa BRISCOE RT AT BEDSIDE PERFORMING PCXR.
--- NOTE | 2021-09-15 07:43 | NUR ---
PT SITTING UP IN BED, NO COMPLAINTS AT THIS TIME, ALERT/ORIENTED X3, NIH A 0. LUNGS CLEAR, CALL LIGHT WITHIN REACH, WILL CONTINUE TO MONITER PT.
--- NOTE | 2021-09-15 08:05 | NUR ---
PT REMAINS INTUBATED, WILL CONTINUE TO MONITER
--- NOTE | 2021-09-15 10:40 | NUR ---
VITAL SIGNS STABLE, WILL CONTINUE TO MONITER.
--- NOTE | 2021-09-15 12:20 | NUR ---
DR. ELIAS TALKING TO INLETTER DR. MARLOW.
--- NOTE | 2021-09-15 12:22 | NUR ---
DR. RICK AT BEDSIDE WITH DR. ELIAS AT THIS TIME
--- NOTE | 2021-09-15 12:38 | NUR ---
WANTS US TO START WEANING PT DOWN ON VENT.
--- NOTE | 2021-09-15 14:30 | NUR ---
PT REMAINS THE SAME, VITAL SIGNS STABLE. DECREASING VENT SETTINGS PER DOCTOR DOWN TO 55/16/6 SATS 99-100%
--- NOTE | 2021-09-15 16:46 | NUR ---
PT ASSESSMENT DONE, NOTHING HAS CHANGED, WILL CONTINUE TO MONITER PT. DECREASED VENT SETTINGS TO 50/16/6 WITH SATS STAYING AT 98%
--- NOTE | 2021-09-15 18:12 | NUR ---
PT ASSESSMENT OBTAINED, PT REMAINS THE SAME, ESTEFANIA ARMS/HANDS ELEVATED ON PILLOWS, DARK YELLOW URINE FROM GODINEZ, APPROX 400 OUTPUT THIS SHIFT. DIPROVAN INFUSING AT 30, HEART RATE FROM 120-130'S WITH OCCASIONAL PVC, WILL CONTINUE TO MONITER
--- NOTE | 2021-09-15 19:52 | NUR ---
ASSESSMENT REMAINS THE SAME PREVIOUS. DIPROVAN INFUSING AT 30 IN ALTERNATING AIR MATTRESS. BILATERAL ARMS AND HANDS REMAIN ELEVATED ON BED. HR 125-135 WILL CONTINUE TO MONITOR
--- NOTE | 2021-09-15 21:15 | NUR ---
PATIENT UNCHANGED PER PREVIOUS NOTES AND ASSESSMENT. PATIENT MEDICATED PER PYSICIAN ORDERS. WILL CONTINUE TO MONITOR
[2021-09-16] VITALS (19 sets, daily range): BP systolic 107–159; BP diastolic 69–89
--- NOTE | 2021-09-16 | NUR ---
Patient remains same as previous note will continue to monitor
--- NOTE | 2021-09-16 02:00 | NUR ---
No change from previous note will continue to monitor
--- NOTE | 2021-09-16 04:17 | NUR ---
Patient remains sedated patient remains same as previous note. airmattress in place and running. will continue to monitor
--- NOTE | 2021-09-16 05:15 | NUR ---
no change from previous note will continue to monitor
[2021-09-16 05:40] LABS: HEMATOCRIT 33.9 % (37.0-47.0); IMMATURE GRANULOCYTES 0.9 % (0.0-5.0); MEAN CELL VOLUME 91.9 fL CALC (80.0-100.0); MEAN CORPUSCULAR HGB 27.1 pG CALC (26.0-32.0); MEAN CORPUSCULAR HGB CONC 29.5 g/dL CAL (32.0-36.0); NEUT# 9.4 thou/uL (2.00-7.15); RED BLOOD COUNT 3.69 mill/uL (4.20-5.60); RED CELL DISTRI WIDTH 15.9 % (11.5-15.5)
[2021-09-16 06:20] LABS: ALBUMIN 2.7 g/dL (3.2-5.0); BILIRUBIN, TOTAL 1.2 mg/dL (0.0-1.4); C-REACTIVE PROTEIN 1.3 mg/dL (0-0.9); CREATININE 1.5 mg/dL (0.5-1.0); POTASSIUM 3.5 mmol/l (3.5-5.1); TOTAL PROTEIN 5.2 g/dL (6.3-8.2)
--- NOTE | 2021-09-16 06:52 | NUR ---
changes in vent parameters as per pt bran. to lwell at this time. nad. vss. head baker to monitor.
--- NOTE | 2021-09-16 07:17 | NUR ---
weaned vent parameters as per pt bran. Pt to lwell at this time. Nad. VSS. drainage inspector to monitor.
--- NOTE | 2021-09-16 07:39 | NUR ---
REPORT RECEIVED FROM JUICE MIXER, PTS CONDITION REMAINS THE SAME, DIPROVAN STILL INFUSING AT 30, VITAL SIGNS STABLE. WILL CONTINUE TO MONITER
--- NOTE | 2021-09-16 08:27 | NUR ---
DR. ELIAS WANTS PT WEANED DOWN FROM DIPROVAN TO SEE HOW PT DOES. RESP HERE AT BEDSIDE.
--- NOTE | 2021-09-16 08:53 | NUR ---
DR. ELIAS SPEAKING TO JEAN THE DAUGHTER ABOUT WEANING PT OFF OF DIPROVAN
--- NOTE | 2021-09-16 09:23 | NUR ---
PT STARTING TO FLUTTER EYES OPEN AND CLOSE, STILL NOT AWAKE AND ABLE TO FOLLOW ANY COMMANDS, WILL CONTINUE TO MONITER PT . DIPROVAN HAS BEEN DISCONTINUED AND MEDS GIVEN PER NG TUBE . VITAL SIGNS REMAIN STABLE.
--- NOTE | 2021-09-16 10:50 | NUR ---
NO CHANGE AT THIS TIME TO PT. WILL TWITCH A FOOT OR AN EYEBROW BUT DOES NOT OPEN EYES ON COMMAND OR SQUEEZE HANDS. VITAL SIGNS REMAIN STABLE AND UNCHANGED, WILL CONTINUE TO MONITER PT.
--- NOTE | 2021-09-16 12:56 | NUR ---
A ZOOM CONFERENCE WITH DR. MARLOW WAS DONE. HE WANTS SEVERAL ABGS DONE THROUGHOUT THE DAY TO MAKE SURE THE TREND IS GOING DOWN . ABG OBTAINED BY [facility] AT THIS TIME AND WILL OBTAIN ANOTHER ONE IN 6 HOURS.
--- NOTE | 2021-09-16 13:34 | NUR ---
DR. ELIAS NOTIFIED OF UPDATE OF WHAT DR. MARLOW SPOKE ABOUT ON ZOOM, ABG WILL BE OBTAINED AGAIN AT 1800. DR. MARLOW WILL CALL AGAIN TOMORROW
--- NOTE | 2021-09-16 15:36 | NUR ---
FAMILY AT BEDSIDE, PT REMAINS ON VENT, NOT AWARE OF SURROUNDINGS OF ANYTHING YET.
--- NOTE | 2021-09-16 16:31 | NUR ---
PT FAMILY AT NURSES STATION ASKING WHY PT HAS NOT BECOME AWARE OF HER SURROUNDINGS AND STARTED TO BREATHE ON HER OWN. SANJAY RN ANSWERING MOST OF HER QUESTIONS.
--- NOTE | 2021-09-16 19:30 | NUR ---
PATIENT RESTING IN BED WITH EYES CLOSED. REMAINS ORALLY INTUBATED ON VENT. SEDATION REMAINS OFF SINCE 0800. PATIENT NOT AWAKE, DOES NOT OPEN EYES TO NAME NOR FOLLOW ANY DIRECTIONS. VSS. ST WITH PVC'S NOTED ON MONITOR.
--- NOTE | 2021-09-16 20:30 | NUR ---
SHIFT ASSESSMENT COMPLETED AT THIS TIME. BREATH SOUNDS DIMINISHED. O2 SAT 95% NGT TO LIS DRAINING TEA COLORED. GODINEZ PATENT DRAINING CRISTY URINE WITH SEDIMENT. SALINE LOCK IN LFA OUTDATED, DC'D WITH CATHETER INTACT. RIJTLC IN PLACE WITH NS INFUSING AT 75 ML/HR. PATIENT IS ON AN AIR MATTRESS. SCD'S IN PLACE.
--- NOTE | 2021-09-16 22:00 | NUR ---
REPOSITIONED. ORAL CARE PROVIDED. VSS. OCCASIONAL SPONTANEOUS EYE OPENING NOTED. NOT FOLLOWING ANY COMMANDS.
--- NOTE | 2021-09-16 23:56 | NUR ---
VSS. O2 SAT 96% MONITOR SHOWS ST WITH PVC'S AND OCCASIONAL RUNS OF AFIB. HR 110'S-120'S.
[2021-09-17] VITALS (17 sets, daily range): BP systolic 125–166; BP diastolic 66–97
--- NOTE | 2021-09-17 02:00 | NUR ---
VENT SETTINGS UNCHANGED. O2 SAT 96%
--- NOTE | 2021-09-17 04:00 | NUR ---
NO CHANGES TO REPORT. VSS. VENT SETTINGS UNCHANGED. ST WITH PVC'S ON MONITOR. RIJTLC REMAINS IN PLACE WITH NS INFUSING AT 50 ML/HR.
--- NOTE | 2021-09-17 06:00 | NUR ---
NO CHANGES TO REPORT. VSS. REMAINS OFF SEDATION THROUGHOUT THE SHIFT. VSS.
[2021-09-17 06:18] LABS: ALBUMIN 2.8 g/dL (3.2-5.0); BILIRUBIN, TOTAL 1.4 mg/dL (0.0-1.4); CREATININE 1.1 mg/dL (0.5-1.0); HEMATOCRIT 34.2 % (37.0-47.0); HEMOGLOBIN 10.2 g/dl (12.0-16.0); MAGNESIUM 1.8 mg/dL (1.6-2.3); MEAN CELL VOLUME 92.2 fL CALC (80.0-100.0); MEAN CORPUSCULAR HGB 27.5 pG CALC (26.0-32.0); MEAN CORPUSCULAR HGB CONC 29.8 g/dL CAL (32.0-36.0); POTASSIUM 3.4 mmol/l (3.5-5.1); RED BLOOD COUNT 3.71 mill/uL (4.20-5.60); RED CELL DISTRI WIDTH 16.2 % (11.5-15.5); TOTAL PROTEIN 5.4 g/dL (6.3-8.2)
--- NOTE | 2021-09-17 09:00 | NUR ---
PATIENT IS VENTED, NOT SEDATED OF LAST NIGHT PER SHIFT CHANGE REPORT. SHE DOES OPEN HER EYES, DOES NOT LOOK TOWARDS ME WHEN IM SPEAKING TO HER. MOVES HER HEAD BUT NOT ON COMMAND. NO RESPONSE WHEN TRIED TO STIMULATE HER BY TOUCH SUCH RUBBING BOTTOM OF HER FEET. NOT FOLLOWING COMMANDS. 3MM PERRLA BILAT EYES. DARK TEA COLOR FROM NG TUBE. EDEMA ON BILAT LOWER ARMS AND HANDS. SCDS ARE IN PLACE. HYPOACTIVE BOWEL SOUNDS, SOFT NON DISTENDED ABDOMEN. GODINEZ, YELLOW URINE. PALPABLE PULSES. DIMINISHED LUNG SOUNDS THROUGHOUT. SAFETY MEASURES IN PLACE. CALL LIGHT IN REACH. WILL CONTINUE TO MONITOR PER HOSPITAL'S PROTOCOL.
--- NOTE | 2021-09-17 10:30 | NUR ---
SPOKE WITH JEAN PATIENT'S DAUGHTER, CODE WAS GIVEN, UPDATE WAS GIVEN.
--- NOTE | 2021-09-17 12:00 | NUR ---
PATIENT REMAINS VENTED, MADE SOME IMPROVEMENTS SUCH REACTING WHEN TOUCHING BOTTOM OF HER FEET.
--- NOTE | 2021-09-17 13:31 | NUR ---
RT ATTEMPTED SBT TRIAL. PT FAILED WITHIN MINUTES, WITH VT OF 20-60. PT DID NOT FOLLOW COMMANDS FOR SLOWING BREATHING DOWN AND TAKING DEEPER BREATHES. PT PLACED BACK ON PREVIOUS SETTINGS. PT ALSO SUCTIONED FOR MODERTE AMOUNT OF MCLEOD SECRETIONS.
--- NOTE | 2021-09-17 14:00 | NUR ---
PATIENT IS STILL VENTED.
--- NOTE | 2021-09-17 16:00 | NUR ---
daughters at bedside with patient.
--- NOTE | 2021-09-17 17:40 | NUR ---
patient is was given a bed bath, sal emptied 1200 out, still had little movements. didn't follow commands.
--- NOTE | 2021-09-17 19:45 | NUR ---
vent cont. pt is NOT sedated. eyes open when care is given. does not follow commands, look @ or track this travel writer when spoken to. cardiac monitor technician shows a flutter pvcs hr 138. rij tlc in place. ns infusing @ 30cchr. ngt in place to lis draining green. sal cath in place. urine yellow & contains sediment. turned & repositioned. requires total care for all needs. fall precautions cont.
--- NOTE | 2021-09-17 20:15 | NUR ---
dr saldaña called this jingle writer. updated on pts condion.
--- NOTE | 2021-09-17 22:00 | NUR ---
eyes closed. no distress. athletic equipment manager shows a flutter pvcs.
[2021-09-18] VITALS (19 sets, daily range): BP systolic 144–176; BP diastolic 80–97
--- NOTE | 2021-09-18 00:01 | NUR ---
opens eyes with painful stimuli. vent cont.
--- NOTE | 2021-09-18 02:00 | NUR ---
eyes closed. no apparent distress.
--- NOTE | 2021-09-18 04:00 | NUR ---
terrazzo polisher shows a flutter pvcs hr 134.
--- NOTE | 2021-09-18 05:00 | NUR ---
blood drawn & sent to lab. xray here. pcxr obtained. complete bed bath & linen change x2 assists.
--- NOTE | 2021-09-18 05:37 | NUR ---
rt here. abgs drawn.
[2021-09-18 05:50] LABS: HEMATOCRIT 34.7 % (37.0-47.0); HEMOGLOBIN 10.4 g/dl (12.0-16.0); IMMATURE GRANULOCYTES 1.1 % (0.0-5.0); MEAN CELL VOLUME 93.3 fL CALC (80.0-100.0); NEUT# 11.58 thou/uL (2.00-7.15); RED BLOOD COUNT 3.72 mill/uL (4.20-5.60); RED CELL DISTRI WIDTH 16.4 % (11.5-15.5)
[2021-09-18 06:16] LABS: ALBUMIN 2.9 g/dL (3.2-5.0); BILIRUBIN, TOTAL 1.4 mg/dL (0.0-1.4); C-REACTIVE PROTEIN 1.5 mg/dL (0-0.9); CREATININE 1.1 mg/dL (0.5-1.0); TOTAL PROTEIN 5.6 g/dL (6.3-8.2)
--- NOTE | 2021-09-18 08:00 | NUR ---
PATIENT IS VENTED LAYING IN BED HEAD GREATER THAN 30 DEGREES. SHE DOES LOOK TOWARDS MY DIRECTION WHEN SPEAKING. HAVE TO SPEAK LOUDLY, VERY HARD OF HEARING. SHE FOLLOWED MY VOICE WHEN I SWITCHED TO EACH SIDE OF THE BED. SQUEEZED MY HANDS. NODDED YES. MORE ALERT TODAY THAN YESTERDAY. DIMINISHED LUNG SOUNDS THROUGH OUT. SOFT NON DISTENDED ABDOMEN. HYPOACTIVE BOWEL SOUNDS. NG TUBE PATENT. TEA COLORED IN OUTPUT. HEART RATE ELEVATED. EDEMA IN BILATERAL ARMS AND HANDS. SCDS IN PLACE. SAFETY MEASURES IN PLACE. WILL CONTINUE TO MONITOR PER HOSPITAL'S POLICY.
--- NOTE | 2021-09-18 09:15 | NUR ---
PT. EXTUBATED AND PLACED ON 3L NC
--- NOTE | 2021-09-18 09:30 | NUR ---
PATIENT HAS BEEN EXTUBATED, PATIENT'S FAMILY MEMBERS INFORMED.
--- NOTE | 2021-09-18 10:00 | NUR ---
PATIENT HAS BEEN EXTUBATED, APPEARS TO BE TIRED.
--- NOTE | 2021-09-18 15:25 | NUR ---
PATIENT WAS GIVEN A BEDSIDE SWALLOW EVALUATION. DID NOT DO WELL. PATIENT STATED BY NODDING HER HEAD THAT SHE WAS FINE BUT KEPT TRYING TO HOLD DOWN HER COUGHING. WILL INFORM THE DOCTOR. DAUGHTERS WERE AT BEDSIDE.
--- NOTE | 2021-09-18 15:35 | NUR ---
INFORMED DOCTOR ABOUT HER ELEVATED HEART RATE, RYTHEM, AND SWALLOW EVALUATION.
--- NOTE | 2021-09-18 16:00 | NUR ---
PATIENT'S FAMILY AT BEDSIDE, JEAN THE DAUGHTER ASKED THE PATIENT "DO YOU WANT A COOKIE" I CAME IN THERE A A COUPLE MINTUES AFTER HEARING THAT STATMENT, THE OTHER DAUGHTER HAD A CUP OF ICE IN HER HAND BUT IN THE PURSE WAS A PURPLE WRAPPER, MAY HAVE BEEN THE COOKIE SHE HAD OFFERED TO THE PATIENT PRIOR TO ME ENTERING THE ROOM. I INFORMED THEM NOT TO FEED HER ANYTHING BECAUSE SHE FAILED THE BEDSIDE SWALLOW EVALUATION. THEY BOTH STATED THAT THEY UNDERSTOOD AND ONLY BEEN GIVING THEIR MOM ICE CHIPS.
--- NOTE | 2021-09-18 19:15 | NUR ---
awakens when touched. looks @ this securities underwriter when spoken loudly to. mouthes "i want ice." denied request d/t coarse lung sounds. court monitor shows a flutter hr 141. rij in [address]. cardizem gtt @ 5mghr & d5w infusing @ 50cc hr. sal cath in place. urine yellow & contains sediment. bilat scds, rt wrist splint, fall precautions cont. turned & repositioned. requires total care for all needs.
--- NOTE | 2021-09-18 22:00 | NUR ---
dr saldaña called this lead technical writer. update given.
--- NOTE | 2021-09-18 22:35 | NUR ---
pulse ox shows 80% with good wave form. rt notified.
[2021-09-19] VITALS (19 sets, daily range): BP systolic 154–199; BP diastolic 88–118
--- NOTE | 2021-09-19 00:01 | NUR ---
eyes closed. no distress. nrb cont.
--- NOTE | 2021-09-19 02:00 | NUR ---
awakens whem touched. no resp distress. quality intern shows a flutter hr 145.
--- NOTE | 2021-09-19 04:45 | NUR ---
blood drawn & sent to lab. cath leaked. 5cc sterile saline added. bed bath & linen change x2 assists.
[2021-09-19 05:28] LABS: HEMATOCRIT 35.2 % (37.0-47.0); HEMOGLOBIN 10.2 g/dl (12.0-16.0); MEAN CELL VOLUME 95.9 fL CALC (80.0-100.0); MEAN CORPUSCULAR HGB 27.8 pG CALC (26.0-32.0); RED BLOOD COUNT 3.67 mill/uL (4.20-5.60); RED CELL DISTRI WIDTH 16.5 % (11.5-15.5)
[2021-09-19 05:44] LABS: ALBUMIN 3.1 g/dL (3.2-5.0); BILIRUBIN, TOTAL 1.4 mg/dL (0.0-1.4); CREATININE 1.2 mg/dL (0.5-1.0); POTASSIUM 3.6 mmol/l (3.5-5.1); TOTAL PROTEIN 5.9 g/dL (6.3-8.2)
--- NOTE | 2021-09-19 08:00 | NUR ---
PATIENT IS ALERT, LOOKS TOWARDS ME WHEN SPEAKING, UNABLE TO SPEAK AT THIS TIME DUE TO BEING EXTUBATED YESTERDAY MORNING. DENIES PAIN. TRIED SWITCHING BACK TO NC WITH RT AT BEDSIDE. DIDN'T TOLERATE WELL SAID YES WHEN ASKING IF SHE FELT SOB. VENTI MASK DIDNT HELP, BACK ON NON-REBREATHER SATS . CALLED DR. ELIAS ABOUT ORDERING CHEST X-RAY, STATED YES TO ORDERING X-RAY FOR HER. LUNG SOUNDS SOUNDED COARSE, PATIENT UNABLE TO COUGH WHEN ASKED. HYPOACTIVE BOWEL SOUNDS. HEART RATE REMAINS ELEVATED, STARTED CARDIZEM DRIP YESTERDAY EVENING AT 5, SHE REMAINED AT 5 THROUGHOUT THE NIGHT. INCREASED TO 10 THIS MORNING. EDEMA STILL REMAINS BILATERAL ARMS AND HANDS. SOFT NON DISTENDED ABODMEN, HYPOACTIVE BOWEL SOUNDS. SCD'S IN PLACED. WEAK HAND MARKETING AUTOMATION MANAGER BILATERALLY UNABLE TO LIFT ARMS WHEN ASKED. SAFETY MEASURES IN PLACE. CALL LIGHT IN REACH. WILL COTNINUE TO MONITOR PER [facility].
--- NOTE | 2021-09-19 09:07 | NUR ---
TURNED PATIENT ONTO RIGHT SIDE BASED ON X-RAY OF THE CHEST RESULT. SPEAKING TO FAMILY NOW ABOUT UPDATES ON THE PATIENT'S SITUATION.
--- NOTE | 2021-09-19 10:09 | NUR ---
CALLED TO BEDSIDE BY RN AND DR ELIAS. PT SATS PLUMMETED DOWN TO 38. VAPOTHERM WAS STARTED AT 40L@100% PLUS NRB. RECOMMENDATION MADE FOR INTUBATION. FAMILY ARRIVED, AND STATED THEY DID NOT WANT INTUBATION, THIS INVESTIGATION CLERK HAD BEGUN USING THE AMBU BAG TO ASSIST IN BREATHING. PT HAD AGONAL BREATING AT THIS TIME. DR. ELIAS ASK THAT WE RETURN PATIENT TO NRB MASK THE FAMILY DECIDED THEY DID NOT WANT INTUBATION AND WANTED TO JUST MAKE HER COMFORTABLE.
--- NOTE | 2021-09-19 10:28 | NUR ---
JEAN STATED TO THE PATIENT "MOMMA IF YOU GONNA GO AWAY THEN GO". DOCTOR CONFIRMED WITH DAUGHTER AGAIN IF SHE WANTED DNR WITH COMFORT MEASURES ONLY, SHE STATED YES AND NODDED HER HEAD. TIME OF IS 1028 CONFIRMED BY DOCTOR ELIAS AND MYSELF.
--- NOTE | 2021-09-19 11:50 | NUR ---
PATIENT'S FAMILY IS NO LONGER AT BEDSIDE.
--- NOTE | 2021-09-19 12:09 | NUR ---
CALLED THE DAUGHTER JEAN, STATED SHE WILL PICK [facility] IN [place] THE HOME FOR THE PATIENT.
--- NOTE | 2021-09-19 12:50 | NUR ---
SPOKE TO RAF FROM [email or web address], REFERENCE NUMBER: [id number].
--- NOTE | 2021-09-19 13:21 | NUR ---
KRIS FROM [facility] CALLED BACK STATING THAT THEY WILL BE DECLINING.
--- NOTE | 2021-09-19 13:37 | NUR ---
ETA FOR [facility] TO BUSINESS SERVICES SALES AGENT PATIENT IS AN HOUR.
--- NOTE | 2021-09-19 16:38 | NUR ---
CALLED [facility] FOR ANOTHER ETA, THEY STATED THAT THE FAMILY CALLED REQUESTED THE PICKING UP TO BE CANCELLED.
--- NOTE | 2021-09-19 16:46 | NUR ---
SPOKE TO THE DAUGHTER JEAN, SHE WAS WITH HER SISTER JEAN. THEY BOTH STATED THAT THEY HAD NOTHING TO DO WITH A PHONE CALL ABOUT CANCELLING THE ELECTRIC STOVE INSTALLER FOR THEIR MOTHER FROM THE HOME.
--- NOTE | 2021-09-19 16:56 | NUR ---
DATA SYSTEMS ANALYST CALLED, SPOKE TO CHRISTI, SHE STATED THAT SHE WILL TALK TO HER DIRECTOR AND CALL US BACK.
--- NOTE | 2021-09-19 17:40 | NUR ---
[facility] CALLED, SPOKE WITH ANDERS, STATED THEIR ETA IS "ABOUT TWO HOURS OUT".
--- NOTE | 2021-09-19 20:00 | NUR ---
[facility] home here. body released.
--- NOTE | 2021-09-21 09:55 | NUR ---
CALLED [facility] SPOKE TO RANI WAS TOLD NIGHT CALLED IN AIR MATTRESS AND WAS GIVEN CONFIRMATION NUMBER [phone].
== END 2021-09-19 10:28 | disposition expired | DRG 207 ==
LOC: ED 08:25 → ICU 13:46 → UNDODEPER 15:12 → ICU 09-19 10:28
PROVIDERS: Emergency Medicine; Hospitalist; Nurse Practitioner; ADMIT Internal Medicine; ATTEND Internal Medicine
PROC: XW033E5 Introduction of Remdesivir Anti-infective into Peripheral Vein, Percutaneous Approach, New Technology Group 5 (ICD-10-PCS; principal; 2021-09-07)
PROC: 5A1955Z Respiratory Ventilation, Greater than 96 Consecutive Hours (ICD-10-PCS; 2021-09-11)
PROC: 5A12012 Performance of Cardiac Output, Single, Manual (ICD-10-PCS; 2021-09-11)
PROC: 0BH17EZ Insertion of Endotracheal Airway into Trachea, Via Natural or Artificial Opening (ICD-10-PCS; 2021-09-11)
PROC: 02HV33Z Insertion of Infusion Device into Superior Vena Cava, Percutaneous Approach (ICD-10-PCS; 2021-09-11)
PROC: 0T9B70Z Drainage of Bladder with Drainage Device, Via Natural or Artificial Opening (ICD-10-PCS; 2021-09-11)
DX: U07.1 COVID-19 (principal); J12.82 Pneumonia due to coronavirus disease 2019; J96.01 Acute respiratory failure with hypoxia; K72.00 Acute and subacute hepatic failure without coma; N17.0 Acute kidney failure with tubular necrosis; E87.2 Acidosis; R57.9 Shock, unspecified; E87.3 Alkalosis; I46.9 Cardiac arrest, cause unspecified; E86.9 Volume depletion, unspecified; E87.6 Hypokalemia; J98.09 Other diseases of bronchus, not elsewhere classified; I11.0 Hypertensive heart disease with heart failure; I50.9 Heart failure, unspecified; E11.9 Type 2 diabetes mellitus without complications; J43.9 Emphysema, unspecified; I48.91 Unspecified atrial fibrillation; M16.0 Bilateral primary osteoarthritis of hip; S62.101D Fracture of unspecified carpal bone, right wrist, subsequent encounter for fracture with routine healing; Z66 Do not resuscitate; W19.XXXD Unspecified fall, subsequent encounter; Z79.84 Long term (current) use of oral hypoglycemic drugs; Z79.01 Long term (current) use of anticoagulants
CPT/HCPCS: J3475; Q9967; S0164